=== PATIENT | female | born 1980 | race Caucasian/White ===

== ENCOUNTER 2024-08-13 01:23 | Emergency (ER) | payer MEDICAID ==
[~2024-08-13] VITALS: Ht 157.5 cm; Wt 63.5 kg
[2024-08-13 02:55] VITALS: BP 129/66; TEMP 99.2; O2SAT 97
== END 2024-08-13 02:56 | disposition home or self-care (01) ==
LOC: ER 01:33
DX: J06.9 Acute upper respiratory infection, unspecified (principal)